=== PATIENT | male | born 2000 | race Two or more races ===

== ENCOUNTER 2019-04-26 21:21 | Emergency (ER) | payer OTHER ==
[2019-04-26 21:30] VITALS: BP 125/70; PULSE 69; TEMP 98.1; BMI 25.0
[2019-04-26] MEDS ORDERED: KETOROLAC TROMETHAMINE 60 MG/2 ML VIAL ONE (21:34)
--- NOTE | 2019-04-26 22:05 | PDOC ---
History of Present Illness - General Chief Complaint: Back Pain Stated Complaint: BACK PAIN Time Seen by Provider: 04/26/19 21:28 History Source: Patient - History of Present Illness Occurred: reports: this morning Pain Location: reports: back Method of Injury: No: fall Past History - Past Medical History Allergies/Adverse Reactions: Allergies Allergy/AdvReac Type Severity Reaction Status Date / Time No Known Allergies Allergy Verified 04/26/19 21:27 Home Medications: Ambulatory Orders Cyclobenzaprine HCl [Flexeril -] 10 mg PO TID #9 tablet 04/26/19 Ibuprofen [Motrin -] 800 mg PO Q6H #30 tablet 04/26/19 Cancer: No Cardiac Disorders: No CVA: No COPD: No CHF: No DVT: No - Suicide/Smoking/Psychosocial Hx Smoking History: Never smoked Hx Alcohol Use: No Drug/Substance Use Hx: No Review of Systems - Review of Systems Constitutional: No: Chills, Fever Respiratory: No: Cough, Shortness of Breath, Hemoptysis Cardiac (ROS): No: Chest Pain, Palpitations ABD/GI: No: Nausea, Vomiting : No: Dysuria, Flank Pain, Hematuria Musculoskeletal: Yes: Back Pain Neurological: No: Numbness, Tingling, Weakness *Physical Exam - Vital Signs Last Vital Signs Temp Pulse Resp BP Pulse Ox 98.1 F 69 20 125/70 100 04/26/19 21:27 04/26/19 21:27 04/26/19 21:27 04/26/19 21:27 04/26/19 21:27 - Physical Exam General Appearance: Yes: Appropriately Dressed. No: Apparent Distress HEENT: positive: Normal Voice Neck: positive: Supple Respiratory/Chest: positive: Lungs Clear, Normal Breath Sounds. negative: Respiratory Distress Cardiovascular: positive: Regular Rate, S1, S2 Gastrointestinal/Abdominal: positive: Soft. negative: Tender Musculoskeletal: negative: CVA Tenderness, Vertebral Tenderness Integumentary: positive: Dry, Warm Neurologic: positive: Fully Oriented, Alert, Normal Mood/Affect Medical Decision Making - Medical Decision Making 04/26/19 22:06 19 year old male, no significant history, here with mid upper back pain that started this morning when he awoke, achy, 7/10, constant and worse with movement. Denies any trauma or obvious inciting factors. Has not taken anything for pain. No nausea, vomiting, dysuria, hematuria, fever or chills. No history of similar pain. See exam Upper back pain Appears MSK No trauma No e/o infection PERCs out Improved w/ toradol here -dc w/ rx -pmd f/u as needed *DC/Admit/Observation/Transfer Diagnosis at time of Disposition: Back pain Qualifiers: Back pain location: back pain in other location Chronicity: acute Qualified Code(s): M54.9 - Dorsalgia, unspecified - Discharge Dispostion Disposition: HOME Condition at time of disposition: Improved - Prescriptions Prescriptions: Cyclobenzaprine HCl [Flexeril -] 10 mg PO TID #9 tablet Ibuprofen [Motrin -] 800 mg PO Q6H #30 tablet - Referrals - Patient Instructions Printed Discharge Instructions: DI for Thoracic Back Pain Additional Instructions: The most common cause of back pain is musculoskeletal Condition can take few days to improve Take medications as directed If pain persists, please follow up with your PMD - Post Discharge Activity Forms/Work/School Notes: Back to Work
[2019-04-26] MEDS ORDERED: KETOROLAC TROMETHAMINE 60 MG/2 ML VIAL IM ONE (22:11)
== END 2019-04-26 22:21 | disposition home or self-care (01) ==
LOC: JERFT 21:21
PROC: 3E0233Z Introduction of Anti-inflammatory into Muscle, Percutaneous Approach (ICD-10-PCS; principal; 2019-04-26)
DX: M54.6 Pain in thoracic spine (principal)
CPT/HCPCS: 96372; 99281-25

== ENCOUNTER 2019-06-01 20:59 | Emergency (ER) | payer OTHER ==
--- NOTE | 2019-06-01 21:08 | PDOC ---
Rapid Medical Evaluation Time Seen by Provider: 06/01/19 21:05 Medical Evaluation: Allergies Allergy/AdvReac Type Severity Reaction Status Date / Time No Known Allergies Allergy Verified 04/26/19 21:27 06/01/19 21:06 This patient had brief in-person evaluation in triage cc: pain and swelling to right hand after punching "something" one month ago complaining of pain when he makes a fist PE: swelling to right hand unlabored breathing orders: xray of right hand This patient will proceed to ed for further evaluation Discharge Disposition - Diagnosis Hand pain, right - Referrals - Patient Instructions - Post Discharge Activity
[2019-06-01 21:09] VITALS: BP 120/75; PULSE 58; TEMP 98.3; BMI 23.6
[2019-06-01] MEDS ORDERED: NAPROXEN 500 MG TABLET (FP) PO ONE (22:49)
--- NOTE | 2019-06-01 22:55 | PDOC ---
History of Present Illness - General Chief Complaint: Pain, Acute Stated Complaint: HAND INJURY Time Seen by Provider: 06/01/19 21:05 History Source: Patient Exam Limitations: Clinical Condition - History of Present Illness Initial Comments: 06/01/19 22:22 Patient with no significant past medical history Present with pain to dorsal aspect of right hand status post injury month ago to right hand. Patient reports swelling to back of right hand on the ulnar side after reinjuring today by punching a table today. Patient did not take anything for pain Timing/Duration: other (1 month) Past History - Past Medical History Allergies/Adverse Reactions: Allergies Allergy/AdvReac Type Severity Reaction Status Date / Time No Known Allergies Allergy Verified 04/26/19 21:27 Home Medications: Ambulatory Orders Naproxen 500 mg PO BID PRN #20 tablet 06/01/19 Cancer: No Cardiac Disorders: No CVA: No COPD: No CHF: No DVT: No - Suicide/Smoking/Psychosocial Hx Smoking History: Unknown if ever smoked Hx Alcohol Use: No Drug/Substance Use Hx: No Review of Systems - Review of Systems Able to Perform ROS?: Yes Is the patient limited Croatian proficient: No Constitutional: No: Malaise, Weakness HEENTM: No: Symptoms Reported Respiratory: No: Symptoms reported Cardiac (ROS): No: Symptoms Reported ABD/GI: No: Symptoms Reported Musculoskeletal: Yes: Symptoms Reported, See HPI, Joint Swelling (back of right hand), Muscle Pain (back of right hand). No: Muscle Weakness Neurological: No: Tingling, Dizziness All Other Systems: Reviewed and Negative *Physical Exam - Vital Signs Last Vital Signs Temp Pulse Resp BP Pulse Ox 98.3 F 58 L 20 120/75 98 06/01/19 21:06 06/01/19 21:06 06/01/19 21:06 06/01/19 21:06 06/01/19 21:06 - Physical Exam Comments: 06/01/19 23:26 GENERAL: Well developed, well nourished. Awake and alert. No acute distress. CARDIOVASCULAR: Regular rate and rhythm. No murmurs, rubs, or gallops. PULMONARY: No evidence of respiratory distress. MUSCULOSKELETAL : moderate tenderness with mild swelling to dorsal aspect of right hand over 3-5th metacarpals. no visible deformity. FROM of hand and wrist. SKIN: Warm and dry. Normal capillary refill. mild swelling to dorsal aspect of right hand NEUROLOGICAL: Alert, awake, appropriate. No motor deficits in the lower extremities. Gait is normal without ataxia. PSYCHIATRIC: Cooperative. Good eye contact. Appropriate mood and affect. General Appearance: Yes: Nourished, Appropriately Dressed. No: Apparent Distress Medical Decision Making - Medical Decision Making 06/01/19 22:24 Patient with no significant past medical history Present with pain to dorsal aspect of right hand status post injury month ago to right hand. Patient reports swelling to back or right hand on the ulnar side after reinjuring today by punching a table today. Patient did not take anything for pain 06/01/19 23:26 Exam significant for mild swelling to dorsal ulnar aspect of right hand over third to fifth metatarsals. X-ray of right hand and wrist shows no acute fracture to hand. Symptoms likely hand sprain. Right hand wrapped with Roger bandage. Naproxen 500 mg by mouth given for pain. Patient be discharged home on naproxen when necessary for pain with orthopedic hand specialist follow-up *DC/Admit/Observation/Transfer Diagnosis at time of Disposition: Hand pain, right - Discharge Dispostion Disposition: HOME Condition at time of disposition: Stable Decision to Admit order: No - Prescriptions Prescriptions: Naproxen 500 mg PO BID PRN #20 tablet PRN Reason: pain - Referrals Referrals: Guilherme Thayer MD [Staff Physician] - - Patient Instructions Printed Discharge Instructions: How to Use an Elastic Bandage-Knee Sprain Additional Instructions: Take prescribed medication as needed for pain. Apply hot compress to hand 2-3 times a day as needed for swelling. use provided roger wrap for hand. Follow-up with referred hand orthopedic if no improvement in 3 days - Post Discharge Activity
== END 2019-06-01 22:56 | disposition home or self-care (01) ==
LOC: JERFT 20:59
DX: M79.641 Pain in right hand (principal); W22.8XXA Striking against or struck by other objects, initial encounter; Y93.89 Activity, other specified; Y92.89 Other specified places as the place of occurrence of the external cause; Y99.8 Other external cause status
CPT/HCPCS: 73110-TC-RT-FY; 73130-TC-RT-FY; 99281-25

== ENCOUNTER 2019-06-05 17:51 | Emergency (ER) | payer OTHER ==
[2019-06-05 17:58] VITALS: BP 131/72; PULSE 75; TEMP 98; BMI 22.9
--- NOTE | 2019-06-05 18:14 | PDOC ---
History of Present Illness - General Chief Complaint: Injury Stated Complaint: RIGHT HAND INJURY Time Seen by Provider: 06/05/19 18:00 History Source: Patient - History of Present Illness Initial Comments: 06/05/19 19:00 Chief complaint: Hand injury. Patient is a healthy 19-year-old male who was seen in the ER on June 01 after punching a table and injuring his right hand. Patient had x-rays that were negative for fracture. Patient continues to have pain as concerned about his ability to work. Patient called the orthopedist listed on his discharge paper and he does not take his insurance. GENERAL/CONSTITUTIONAL: No fever, weakness. dizziness HEAD, EYES, EARS, NOSE AND THROAT: No change in vision. No ear pain or discharge. No sore throat. CARDIOVASCULAR: No chest pain RESPIRATORY: No shortness of breath or cough GASTROINTESTINAL: No pain, nausea, vomiting, diarrhea or constipation GENITOURINARY: No dysuria MUSCULOSKELETAL: No neck or back pain SKIN: No rash NEUROLOGIC: No headache, vertigo, loss of consciousness, or loss of sensation. GENERAL: The patient is awake, alert, and fully oriented, in no acute distress. HEAD: Normal with no signs of trauma. EYES: Pupils equal, round and reactive to light, sclera anicteric, conjunctiva clear. ENT: pharynx: no erythema, no exudate, uvula midline NECK: supple CHEST: clear, nontender, rr ABD: soft, nontender BACK: no tenderness or signs of injury EXTREMITIES: Right hand with mild swelling, ecchymosis to the fourth and fifth metacarpal area, able to flex and extend, no deformity, neurovascular intact. Rest of extremities, normal range of motion, no edema. NEUROLOGICAL: Normal speech, normal gait. SKIN: Warm, Dry Past History - Past Medical History Allergies/Adverse Reactions: Allergies Allergy/AdvReac Type Severity Reaction Status Date / Time No Known Allergies Allergy Verified 06/05/19 17:58 Home Medications: Ambulatory Orders NK [No Known Home Medication] 06/05/19 Cancer: No Cardiac Disorders: No CVA: No COPD: No CHF: No DVT: No - Surgical History Appendectomy: Yes - Immunization History Immunization Up to Date: Yes - Suicide/Smoking/Psychosocial Hx Smoking History: Never smoked Hx Alcohol Use: No Drug/Substance Use Hx: Yes (MARIJUANA) *Physical Exam - Vital Signs Last Vital Signs Temp Pulse Resp BP Pulse Ox 98.0 F 75 16 131/72 97 06/05/19 17:55 06/05/19 17:55 06/05/19 17:55 06/05/19 17:55 06/05/19 17:55 Medical Decision Making - Medical Decision Making 06/05/19 19:01 Patient who had injury to right hand June 01, had negative x-rays, continues to have pain, was not able to follow-up with orthopedist. Patient does not have a splint on. Will when patient, patient has looked on his insurance and found 3 orthopedist that he can follow-up with, he will call on Saturday. Patient was given a note for work. Discussed issues, findings, results, applicable medications and treatments and follow-up. All these were understood and all questions were answered *DC/Admit/Observation/Transfer Diagnosis at time of Disposition: Hand injury Qualifiers: Encounter type: initial encounter Laterality: right Qualified Code(s): S69.91XA - Unspecified injury of right wrist, hand and finger(s), initial encounter - Discharge Dispostion Disposition: HOME Condition at time of disposition: Stable Decision to Admit order: No - Referrals Referrals: Tee Burgess MD [Primary Care Provider] - - Patient Instructions Additional Instructions: Elevate, wear splint Motrin 600 mg every 6 hours for pain. Call one of the orthopedists on your list for follow-up next week - Post Discharge Activity Forms/Work/School Notes: Back to Work
== END 2019-06-05 18:42 | disposition home or self-care (01) ==
LOC: JERFT 17:51
DX: S69.81XD Other specified injuries of right wrist, hand and finger(s), subsequent encounter (principal); W22.8XXD Striking against or struck by other objects, subsequent encounter
CPT/HCPCS: 99281-25

== ENCOUNTER 2020-10-14 20:27 | Emergency (ER) | payer OTHER ==
[2020-10-14 20:32] VITALS: BP 132/86; PULSE 66; TEMP 98; BMI 23.7
[2020-10-14] MEDS ORDERED: MAG HYDROX/AL HYDROX/SIMETH -MYLANTA- ORAL SUSPENSION PO ONE (21:06)
[2020-10-14] MEDS ORDERED: MAG HYDROX/AL HYDROX/SIMETH 30 ML UNIT-DOSE CUP ONE (21:09)
== END 2020-10-14 21:19 | disposition home or self-care (01) ==
LOC: JER 20:27
DX: R10.13 Epigastric pain (principal); R00.2 Palpitations
CPT/HCPCS: 93005; 93010; 99283-25